=== PATIENT | female | born 1985 | race Caucasian/White ===

== ENCOUNTER 2016-10-14 02:43 | Emergency (ER) | payer BC ==
[2016-10-14 03:14] LABS: BASOPHILS 0.2 % (0.0-2.0); HEMATOCRIT 40.3 % (36.0-48.0); HEMOGLOBIN 13.6 g/dL (12-16); IMMATURE GRANULOCYTES 0.2 % (0-5); LYMPHOCYTES 26.6 % (15-50); MCH 30.6 pg (26.0-34.0); MCHC 33.7 g/dL (31.0-37.0); MCV 90.8 fL (80.0-100.0); MEAN PLATELET VOLUME 9.8 fL (7.4-10.4); MONOCYTES 7.1 % (2-11); NEUTROPHILS 63.9 % (40-80); PLATELET COUNT 259 10x3/uL (130-400); RBC 4.44 10x6/uL (4.00-5.40); RDW 12.6 % (11.5-14.5); WBC 12.4 10x3/uL (4.8-10.8)
[2016-10-14 03:20] LABS: HCG SERUM POSITIVE (NEGATIVE)
== END 2016-10-14 05:08 | disposition home or self-care (01) ==
LOC: D.ER 02:43
PROVIDERS: Emergency Medicine
DX: N93.9 Abnormal uterine and vaginal bleeding, unspecified (principal); O03.9 Complete or unspecified spontaneous abortion without complication

== ENCOUNTER 2017-03-01 19:54 | Emergency (ER) | payer BC ==
[2017-03-01 20:55] LABS: BASOPHILS 0.2 % (0-2); EOSINOPHILS 1.4 % (0-7); HEMATOCRIT 40.7 % (36.0-48.0); HEMOGLOBIN 13.9 g/dL (12-16); IMMATURE GRANULOCYTES 0.3 % (0-5); LYMPHOCYTES 31.5 % (15-50); MCH 31.4 pg (26.0-34.0); MCHC 34.2 g/dL (31.0-37.0); MCV 91.9 fL (80.0-100.0); MEAN PLATELET VOLUME 9.9 fL (7.4-10.4); MONOCYTES 7.7 % (2-11); NEUTROPHILS 58.9 % (40-80); PLATELET COUNT 283 10x3/uL (130-400); RBC 4.43 10x6/uL (4.00-5.40); RDW 12.8 % (11.5-14.5)
== END 2017-03-01 21:56 | disposition home or self-care (01) ==
LOC: D.ER 19:54
PROVIDERS: Emergency Medicine
DX: N93.9 Abnormal uterine and vaginal bleeding, unspecified (principal)

== ENCOUNTER 2018-01-18 17:13 | Outpatient (CLI) | payer BC ==
[2018-03-16 21:09] VITALS: BMI 32.9
== END 2018-01-18 22:48 ==
LOC: D.LDO 17:13
PROVIDERS: Obstetrics & Gynecology
DX: O26.893 Other specified pregnancy related conditions, third trimester (principal); Z3A.30 30 weeks gestation of pregnancy

== ENCOUNTER → 2018-01-31 14:39 | Outpatient (CLI) | payer BC ==
[~2018-01-31 14:39] MED LIST: VALTREX500 MG PO
[2018-03-16 21:09] VITALS: BMI 32.9
== END | disposition home or self-care (01) ==
LOC: D.LDO 14:39
DX: O36.8130 Decreased fetal movements, third trimester, not applicable or unspecified (principal); Z3A.32 32 weeks gestation of pregnancy

== ENCOUNTER → 2018-02-14 17:47 | Outpatient (CLI) | payer BC ==
[2018-02-14 19:59] LABS: APPEARANCE CLEAR (CLEAR); BILIRUBIN NEGATIVE (NEGATIVE); COLOR YELLOW (YELLOW); GLUCOSE NEGATIVE (NEGATIVE); KETONE NEGATIVE (NEGATIVE); NITRITE NEGATIVE (NEGATIVE); PROTEIN NEGATIVE (NEGATIVE); UROBILINOGEN NORMAL (NORMAL)
[2018-02-14 20:00] LABS: BACTERIA MODERATE /hpf (NONE SEEN); EPITHELIAL CELLS 0-5 /hpf (0-5); RED CELLS - URINE 0-5 /hpf (0-5); WHITE CELLS - URINE 0-5 /hpf (0-5)
[2018-03-16 21:09] VITALS: BMI 32.9
== END | disposition home or self-care (01) ==
LOC: D.LDO 17:47
PROVIDERS: Obstetrics & Gynecology
DX: O26.893 Other specified pregnancy related conditions, third trimester (principal); Z3A.34 34 weeks gestation of pregnancy

== ENCOUNTER → 2018-02-25 12:11 | Outpatient (CLI) | payer BC ==
[2018-03-16 21:09] VITALS: BMI 32.9
== END | disposition home or self-care (01) ==
LOC: D.LDO 12:11
DX: O26.893 Other specified pregnancy related conditions, third trimester (principal); Z3A.36 36 weeks gestation of pregnancy; O36.8130 Decreased fetal movements, third trimester, not applicable or unspecified

== ENCOUNTER → 2018-03-05 16:32 | Outpatient (CLI) | payer BC ==
[2018-03-05 16:57] LABS: APPEARANCE HAZY (CLEAR); BILIRUBIN NEGATIVE (NEGATIVE); COLOR YELLOW (YELLOW); GLUCOSE NEGATIVE (NEGATIVE); KETONE NEGATIVE (NEGATIVE); NITRITE NEGATIVE (NEGATIVE); PROTEIN NEGATIVE (NEGATIVE); SPECIFIC GRAVITY 1.015 (1.005-1.020); UROBILINOGEN NORMAL (NORMAL)
[2018-03-05 16:58] LABS: RED CELLS - URINE 0-5 /hpf (0-5); WHITE CELLS - URINE 0-5 /hpf (0-5)
[2018-03-05 16:59] LABS: BACTERIA MODERATE /hpf (NONE SEEN)
[2018-03-16 21:09] VITALS: BMI 32.9
== END | disposition home or self-care (01) ==
LOC: D.LDO 16:32
PROVIDERS: Obstetrics & Gynecology
DX: O26.893 Other specified pregnancy related conditions, third trimester (principal); Z3A.37 37 weeks gestation of pregnancy

== ENCOUNTER → 2018-03-13 17:55 | Outpatient (CLI) | payer BC ==
[2018-03-16 21:09] VITALS: BMI 32.9
== END | disposition home or self-care (01) ==
LOC: D.LDO 17:55
DX: O26.899 Other specified pregnancy related conditions, unspecified trimester (principal); Z3A.00 Weeks of gestation of pregnancy not specified

== ENCOUNTER 2018-03-16 01:13 | Inpatient (IN) | payer BC ==
[~2018-03-16] VITALS: Ht 168.9 cm; Wt 94.1 kg
[2018-03-16 20:54] LABS: HEMATOCRIT 35.8 % (36.0-48.0); HEMOGLOBIN 12.5 g/dL (12-16); MCH 30.8 pg (26.0-34.0); MCHC 34.9 g/dL (31.0-37.0); MCV 88.2 fL (80.0-100.0); MEAN PLATELET VOLUME 10.9 fL (7.4-10.4); RBC 4.06 10x6/uL (4.00-5.40); RDW 14.5 % (11.5-14.5); WBC 11.3 10x3/uL (4.8-10.8)
[2018-03-16 21:09] VITALS: BP 117/67; Ht 168.9 cm; Wt 94.1 kg
[2018-03-16 21:20] LABS: APPEARANCE CLEAR (CLEAR); BILIRUBIN NEGATIVE (NEGATIVE); COLOR YELLOW (YELLOW); GLUCOSE NEGATIVE (NEGATIVE); KETONE NEGATIVE (NEGATIVE); NITRITE NEGATIVE (NEGATIVE); PROTEIN NEGATIVE (NEGATIVE); UROBILINOGEN NORMAL (NORMAL)
[2018-03-16] MEDS ORDERED: VALTREX500 MG PO (23:57)
[2018-03-18 07:34] LABS: RAPID PLASMA REAGIN Non Reactive (Non Reactive)
[2018-03-18 20:30] VITALS: BP 92/59
[2018-03-19 06:09] LABS: HEMATOCRIT 28.5 % (36.0-48.0); HEMOGLOBIN 9.8 g/dL (12-16); MCH 30.2 pg (26.0-34.0); MCHC 34.4 g/dL (31.0-37.0); MCV 87.7 fL (80.0-100.0); MEAN PLATELET VOLUME 10.4 fL (7.4-10.4); RBC 3.25 10x6/uL (4.00-5.40); WBC 26.8 10x3/uL (4.8-10.8)
[2018-03-19 07:22] VITALS: BP 85/47
[2018-03-19 11:09] VITALS: BP 93/58
[2018-03-19 18:17] VITALS: BP 109/68
[2018-03-19 19:12] VITALS: BP 99/58
[2018-03-20 07:05] VITALS: BP 112/70
[2018-03-20 07:29] LABS: HEMATOCRIT 28.7 % (36.0-48.0); HEMOGLOBIN 9.6 g/dL (12-16); MCH 29.7 pg (26.0-34.0); MCHC 33.4 g/dL (31.0-37.0); MCV 88.9 fL (80.0-100.0); MEAN PLATELET VOLUME 10.1 fL (7.4-10.4); RBC 3.23 10x6/uL (4.00-5.40); RDW 15.6 % (11.5-14.5)
[2018-03-20 07:41] LABS: WBC 17.4 10x3/uL (4.8-10.8)
== END 2018-03-20 17:40 | disposition home or self-care (01) | DRG 775 ==
LOC: D.LD
PROVIDERS: Obstetrics & Gynecology
PROC: 3E033VJ Introduction of Other Hormone into Peripheral Vein, Percutaneous Approach (ICD-10-PCS; 2018-03-17)
PROC: 10E0XZZ Delivery of Products of Conception, External Approach (ICD-10-PCS; principal; 2018-03-18)
DX: O41.1230 Chorioamnionitis, third trimester, not applicable or unspecified (principal); Z3A.38 38 weeks gestation of pregnancy; Z37.0 Single live birth

== ENCOUNTER 2018-08-28 11:18 | Emergency (ER) | payer BC ==
[~2018-08-28] VITALS: Ht 168.9 cm; Wt 84.1 kg
[2018-08-28 11:28] VITALS: Ht 168.9 cm; Wt 84.1 kg
[2018-08-28 11:52] LABS: APPEARANCE CLEAR (CLEAR); BILIRUBIN NEGATIVE (NEGATIVE); COLOR STRAW (YELLOW); GLUCOSE NEGATIVE (NEGATIVE); KETONE NEGATIVE (NEGATIVE); NITRITE NEGATIVE (NEGATIVE); PROTEIN NEGATIVE (NEGATIVE); SPECIFIC GRAVITY 1.005 (1.005-1.020); UROBILINOGEN NORMAL (NORMAL)
[2018-08-28 11:53] LABS: BACTERIA NONE SEEN /hpf (NONE SEEN); EPITHELIAL CELLS 0-5 /hpf (0-5); RED CELLS - URINE 0-5 /hpf (0-5); WHITE CELLS - URINE NSEEN /hpf (0-5)
[2018-08-28 12:09] LABS: BASOPHILS 0.4 % (0-2); EOSINOPHILS 1.8 % (0-7); HEMOGLOBIN 14.5 g/dL (12-16); IMMATURE GRANULOCYTES 0.2 % (0-5); LYMPHOCYTES 32.3 % (15-50); MCH 30.7 pg (26.0-34.0); MCHC 34.5 g/dL (31.0-37.0); MEAN PLATELET VOLUME 9.9 fL (7.4-10.4); MONOCYTES 6.8 % (2-11); NEUTROPHILS 58.5 % (40-80); RBC 4.72 10x6/uL (4.00-5.40); RDW 13.3 % (11.5-14.5); WBC 8.4 10x3/uL (4.8-10.8)
[2018-08-28 12:11] LABS: PLATELET COUNT 276 10x3/uL (130-400)
[2018-08-28 12:28] LABS: ALBUMIN 3.7 g/dL (3.4-5.0); ALKALINE PHOSPHATASE 111 U/L (46-116); ALT (SGPT) 31 U/L (10-68); CALC OSMOLALITY 277 mosm/kg (275-300); CALCIUM 8.5 mg/dL (8.5-10.1); CARBON DIOXIDE 25.3 mmol/L (21.0-32.0); CHLORIDE - SERUM 105 mmol/L (98-107); CREATININE - SERUM 0.8 mg/dL (0.6-1.3); GLUCOSE 92 mg/dL (74-106); POTASSIUM - SERUM 3.8 mmol/L (3.5-5.1); PROTEIN - SERUM 7.7 g/dL (6.4-8.2); SODIUM 140 mmol/L (136-145); UREA NITROGEN 10 mg/dL (7-18); eGFR NON AFRICAN AMERICAN 88 mL/min (90-120)
[2018-08-28 12:32] LABS: HCG - QUANTITATIVE (MATERNAL) 42 mIU/mL
[2018-08-28 15:00] VITALS: BP 119/61
== END 2018-08-28 16:26 | disposition home or self-care (01) ==
LOC: D.ER 11:18
PROVIDERS: Family Medicine
DX: O03.9 Complete or unspecified spontaneous abortion without complication (principal); P55.0 Rh isoimmunization of newborn

== ENCOUNTER 2019-04-29 15:00 | Emergency (ER) | payer BC ==
[~2019-04-29] VITALS: Ht 168.9 cm; Wt 82.3 kg
[2019-04-29 15:07] VITALS: Ht 168.9 cm; Wt 82.3 kg
[2019-04-29 16:01] LABS: BASOPHILS 0.2 % (0-2); EOSINOPHILS 0.7 % (0-7); HEMATOCRIT 46.8 % (36.0-48.0); HEMOGLOBIN 15.6 g/dL (12-16); LYMPHOCYTES 8.4 % (15-50); MCH 30.5 pg (26.0-34.0); MCHC 33.3 g/dL (31.0-37.0); MCV 91.4 fL (80.0-100.0); MEAN PLATELET VOLUME 9.2 fL (7.4-10.4); MONOCYTES 6.9 % (2-11); NEUTROPHILS 82.8 % (40-80); PLATELET COUNT 277 10x3/uL (130-400); RBC 5.12 10x6/uL (4.00-5.40); RDW 13.3 % (11.5-14.5); WBC 12.2 10x3/uL (4.8-10.8)
[2019-04-29 16:09] LABS: CALC OSMOLALITY 270 mosm/kg (275-300); CALCIUM 8.8 mg/dL (8.5-10.1); CARBON DIOXIDE 27.4 mmol/L (21.0-32.0); CHLORIDE - SERUM 103 mmol/L (98-107); CREATININE - SERUM 0.7 mg/dL (0.6-1.3); GLUCOSE 97 mg/dL (74-106); POTASSIUM - SERUM 3.8 mmol/L (3.5-5.1); SODIUM 136 mmol/L (136-145); UREA NITROGEN 9 mg/dL (7-18); eGFR NON AFRICAN AMERICAN > 90 mL/min (90-120)
[2019-04-29 16:15] LABS: ALKALINE PHOSPHATASE 133 U/L (46-116); ALT (SGPT) 26 U/L (10-68); AMYLASE - SERUM 38 U/L (25-115); BILIRUBIN - TOTAL 0.57 mg/dL (0.2-1.3); LIPASE 98 U/L (73-393); PROTEIN - SERUM 8.2 g/dL (6.4-8.2)
[2019-04-29 17:44] LABS: APPEARANCE CLEAR (CLEAR); COLOR YELLOW (YELLOW)
[2019-04-29 17:45] LABS: BILIRUBIN NEGATIVE (NEGATIVE); GLUCOSE NEGATIVE (NEGATIVE); KETONE MODERATE mg/dL (NEGATIVE); NITRITE NEGATIVE (NEGATIVE); PROTEIN NEGATIVE (NEGATIVE); SPECIFIC GRAVITY 1.025 (1.005-1.020); UROBILINOGEN NORMAL (NORMAL)
[2019-04-29 17:46] LABS: BACTERIA FEW /hpf (NEGATIVE); EPITHELIAL CELLS 0-5 /hpf (0-5); RED CELLS - URINE 0-5 /hpf (0-5); WHITE CELLS - URINE 0-5 /hpf (NEGATIVE)
[2019-04-29 18:33] VITALS: BP 107/70
[2019-04-29] MEDS ORDERED: ZOFRAN ODT4 MG/UDTAB PO (18:34)
[2019-04-29] MEDS ORDERED: IMODIUM2 MG PO (18:34)
== END 2019-04-29 18:44 | disposition home or self-care (01) ==
LOC: D.ER 15:00
PROVIDERS: Emergency Medicine
DX: O26.891 Other specified pregnancy related conditions, first trimester (principal); A05.9 Bacterial foodborne intoxication, unspecified

== ENCOUNTER 2019-05-03 06:00 | Day surgery (SDC) | payer BC ==
[2019-05-02 11:29] LABS: BASOPHILS 0.5 % (0-2); EOSINOPHILS 0.5 % (0-7); HEMATOCRIT 43.2 % (36.0-48.0); HEMOGLOBIN 14.5 g/dL (12-16); LYMPHOCYTES 41.5 % (15-50); MCH 30.7 pg (26.0-34.0); MCHC 33.6 g/dL (31.0-37.0); MCV 91.3 fL (80.0-100.0); MEAN PLATELET VOLUME 9.6 fL (7.4-10.4); MONOCYTES 11.8 % (2-11); NEUTROPHILS 45.7 % (40-80); PLATELET COUNT 285 10x3/uL (130-400); RBC 4.73 10x6/uL (4.00-5.40); RDW 13.5 % (11.5-14.5)
[~2019-05-03] VITALS: Ht 167.6 cm; Wt 81.6 kg
[~2019-05-03 06:00] MED LIST changes: +IMODIUM2 MG PO; +ZOFRAN ODT4 MG/UDTAB PO
[2019-05-03 06:59] VITALS: BP 113/66; Ht 167.6 cm; Wt 81.6 kg
--- NOTE | 2019-05-03 13:44 | NUR ---
1315 IV REMOVED AND PRESSURE HELD 1330 INSTRUCTIONS GIVEN AND PT D/C HOME
--- NOTE | 2019-05-04 07:14 | OP ---
PATIENT NAME: MELISSA MTZ MEDICAL RECORD: [id number] :86 LOCATION:D.OPS ADMISSION DATE: SURGEON: NATE LEOS MD DATE OF OPERATION: 05/03/2019 PREOPERATIVE DIAGNOSIS: Missed . POSTOPERATIVE DIAGNOSIS: Missed . PROCEDURE: Suction D&E. SURGEON: Nate Leos MD ANESTHESIOLOGIST: Dr. Donato ANESTHETIC: General. FINDINGS: Uterus enlarged, approximately 8-9 week size. Moderate amount of products of conception were returned at the time of curettage. SPECIMENS REMOVED: Products of conception. SPECIMEN DISPOSITION: Pathology. ESTIMATED BLOOD LOSS: Less than or equal to 75 mL. FLUIDS: 800 mL of lactated Ringer's. URINE OUTPUT: Quantity sufficient void prior to this procedure. COMPLICATIONS: None. DRAINS: None. INDICATIONS: The patient is a 33-year-old G4, para 1-2-0-1 at approximately 7-8 weeks . The patient has a blighted ovum on ultrasound and was consented for a suction D&E. DESCRIPTION OF PROCEDURE: After informed consent was assured, the patient was taken to the operating room where anesthetic was obtained. The patient was placed in stirrups and prepped and draped in the usual fashion. A speculum was introduced in the vagina. Cervix was grasped and the uterus placed on gentle tension. The cervix was now dilated to accommodate a #8 curved suction curette. This curette was passed to the fundus and suction applied. An exam under anesthesia was performed prior to selection of the curette. With the suction curette at the fundus, suction was applied and the products of conceptions were removed in several passes. A sharp curettage was performed with good cry. The single tooth tenaculum that was placed on the cervix was removed. Some bleeding was noted and this was held with a ring forceps, which was removed prior to placing the patient on the gurney. Sponge, lap, and needle counts correct times 2. The patient was awakened and went to the recovery area in stable condition. 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
== END 2019-05-03 13:30 | disposition home or self-care (01) ==
LOC: D.OPS 06:00 → D.PAN 08:15 → D.OPS 08:15
PROVIDERS: ATTEND Obstetrics & Gynecology
DX: O02.1 Missed abortion (principal)

== ENCOUNTER 2020-04-05 10:35 | Outpatient (CLI) | payer BC ==
[2019-05-03 06:59] VITALS: BMI 29.1
[2020-04-05 11:53] LABS: BACTERIA FEW HPF (NONE SEEN); BILIRUBIN NEGATIVE (NEGATIVE); EPITHELIAL CELLS RARE /hpf (0-5); KETONE NEGATIVE (NEGATIVE); NITRITE NEGATIVE (NEGATIVE); UROBILINOGEN NORMAL mg/dL (< 2); WHITE CELLS - URINE RARE HPF (0-4)
== END 2020-04-05 12:10 | disposition home or self-care (01) ==
LOC: D.LDO 10:35
PROVIDERS: ATTEND Obstetrics & Gynecology
DX: O26.899 Other specified pregnancy related conditions, unspecified trimester (principal); R10.30 Lower abdominal pain, unspecified; Z3A.00 Weeks of gestation of pregnancy not specified; R30.0 Dysuria